=== PATIENT | female | born 1955 | race Caucasian/White ===

== ENCOUNTER 2022-11-01 09:46 | Outpatient (RCR) | payer MEDICARE, BC, SELFPAY | END 2023-04-08 10:50 | disposition home or self-care (01) | LOC: HO.PTWFD 09:46 | PROVIDERS: PCP Internal Medicine; Visit Provider Internal Medicine | DX: M25.562 Pain in left knee (principal) | CPT/HCPCS: 97110; 97161; 97535 ==